=== PATIENT | female | born 1960 | race Caucasian/White ===

== ENCOUNTER 2018-01-12 08:17 | Outpatient (CLI) | payer OTHER | END 2018-01-12 08:18 | disposition home or self-care (01) | LOC: BICCT 08:17 | PROVIDERS: ATTEND Family Medicine | DX: R31.9 Hematuria, unspecified (principal); R10.9 Unspecified abdominal pain; N20.0 Calculus of kidney; I87.8 Other specified disorders of veins; N32.89 Other specified disorders of bladder | CPT/HCPCS: 74176 ==

== ENCOUNTER 2018-07-26 09:19 | Outpatient (CLI) | payer OTHER ==
--- NOTE | 2018-07-26 11:15 | MMO ---
BILATERAL SCREENING MAMMOGRAM: HISTORY: Baseline exam. FINDINGS: Films are reviewed with the assistance of computer aided detection. Scattered fibroglandular changes of both breasts are seen. Nodular densities associated with dense, popcorn-type calcifications are seen within the right breast. 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 There are no suspicious calcifications or other signs of malignancy. Smaller, noncalcified, n odular densities in both breasts are most likely other smaller adenomas, given the multiplicity. Joanna ual follow-up mammogram would be recommended for assessment. IMPRESSION: BI-RADS Category 2-Benign findings. POS: KELECHI
== END 2018-07-26 09:20 | disposition home or self-care (01) ==
LOC: SCSMAMMO 09:19
PROVIDERS: ATTEND Family Medicine
DX: Z12.31 Encounter for screening mammogram for malignant neoplasm of breast (principal); Z80.1 Family history of malignant neoplasm of trachea, bronchus and lung; Z80.0 Family history of malignant neoplasm of digestive organs
CPT/HCPCS: 77067

== ENCOUNTER 2019-04-20 07:44 | Outpatient (CLI) | payer OTHER ==
--- NOTE | 2019-04-20 08:20 | ULT ---
ULTRASOUND ABDOMEN LIMITED: CLINICAL HISTORY: Chronic hepatitis C. Evaluate for cirrhosis.. COMPARISON: None. FINDINGS: Pancreas: The head and proximal pancreatic body have a normal echotexture. Liver:Slightly coarsened hepatic parenchymal echotexture which limits evaluation for hepatic masses a nd intrahepatic biliary dilatation. The contour of the hepatic margin is maintained. Right hepatic lobe measures 17.2 cm. Gallbladder: No sonographic evidence of cholelithiasis, gallbladder wall thickening or pericholecysti c fluid. Gallbladder is mildly distended. Gallbladder is long and folds upon itself. Gallbladder measures approximately 14 cm in length. Harvey's sign: Negative. Portal Vein: Patent. Appropriate directional flow. Bile ducts: 0.4 cm. Right kidney: Right renal cortical thinning. No cortical masses. No hydronephrosis. Right kidney stephen ures 4.0 x 9.4 x 5.3 cm in length. IMPRESSION: 1. Mild heterogeneous echotexture which may be due to hepatic steatosis or hepatocellular disease. 2. Elongated gallbladder, nonspecific. Transcribed Date/Time: 04/20/2019 8:23 AM
== END 2019-04-20 07:45 | disposition home or self-care (01) ==
LOC: BICULT 07:44
PROVIDERS: ATTEND Family Medicine
DX: B18.2 Chronic viral hepatitis C (principal); K82.8 Other specified diseases of gallbladder
CPT/HCPCS: 76705

== ENCOUNTER 2019-04-21 10:45 | Observation (INO) | payer OTHER ==
[~2019-04-21 10:45] MED LIST: PROPOFOL 200 MG/20 ML VIAL ONE
[2019-04-21] MEDS ORDERED: Pantoprazole 40 MG VIAL ONE (11:51)
[2019-04-21 12:13] LABS: #Lymphocytes 1.4 thou/uL (1.20-3.40); #Monocytes 0.4 thou/uL (0.11-0.59); #Neutrophils 5.3 thou/uL (1.40-6.50); %Basophils 0.6 % (0.0-1.0); %Eosinophils 0.1 % (0.0-10.0); %Lymphocytes 19.8 % (21.0-51.0); %Neutrophils 74.5 % (42.0-75.0); Hemoglobin 12.7 g/dL (12.0-16.0); Mean Corpuscular Hemoglobin 33.1 pg (27.0-31.0); Mean Platelet Volume 8.2 fL (7.4-10.4); Platelet Count 197 thou/uL (130-400); RBC Distribution Width 12.3 % (11.5-14.5); Red Blood Cell (RBC) Count 3.86 mill/uL (4.20-5.40); White Blood Cell (WBC) Count 7.1 thou/uL (4.8-10.8)
[2019-04-21 12:21] LABS: INR-International Normal Ratio 1.1; PTT 26.1 SEC (22.9-36.1); Prothrombin Time 14.3 SEC (12.0-14.7)
[2019-04-21 12:37] LABS: ALT (SGPT) 88 U/L (8-55); AST (SGOT) 98 U/L (5-34); Albumin 3.4 g/dL (3.5-5.0); Alkaline Phosphatase 107 U/L (40-110); Anion Gap 10 mmol/L (10-20); BUN (Urea Nitrogen) 39 mg/dL (9.8-20.1); Bilirubin, Total 1.4 mg/dL (0.2-1.2); Calc. Creatinine Clearance 0 mL/min (70-130); Carbon Dioxide 26 mmol/L (22-29); Chloride 110 mmol/L (98-107); Estimated GFR-MDRD 87; Globulin 3.6 g/dL (2.4-3.5); Glucose 108 mg/dL (70-105); Potassium 4.6 mmol/L (3.5-5.1); Sodium 141 mmol/L (136-145)
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
[2019-04-21] MEDS ORDERED: Bisacodyl 5 MG TAB PO PRN (14:17)
[2019-04-21] MEDS ORDERED: Acetaminophen 325 MG TAB PO PRN (14:17)
[2019-04-21] MEDS ORDERED: Promethazine HCl 12.5 MG in Sodium Chloride 0.9% 50 ML IVPB PRN (14:19)
[2019-04-21] MEDS ORDERED: Ondansetron PF 4 MG/2 ML Vial IVP PRN (14:19)
[2019-04-21] MEDS ORDERED: hydrALAZINE 20 MG/ML VIAL SLOW IVP PRN (14:19)
[2019-04-21] MEDS ORDERED: cloNIDine 0.1 MG TAB PO PRN (14:19)
[2019-04-21 15:26] VITALS: BMI 25.4
[2019-04-21] MEDS ORDERED: cefTRIAXone\\ROCEPHIN 1 GM in Sodium Chloride 0.9% 100 ML IVPB SCH (18:00)
[2019-04-21] MEDS: Pantoprazole 40 MG VIAL IVP SCH (19:58)
--- NOTE | 2019-04-21 23:41 | CON ---
DATE OF CONSULTATION: 04/21/2019 REASON FOR CONSULTATION: GI hemorrhage. HISTORY OF PRESENT ILLNESS: Ms. Mali Gould is a very pleasant 58-year-old female who is a resident in the [facility]. History of arthritis and takes ibuprofen on a regular basis. She had nausea, vomiting, and also passed 1 black tarry stool this morning. Apparently, she felt this started this morning and sick to stomach, nausea and vomiting and she vomited fairly good amount of coffee-ground material. She also had one more black tarry subsequently. The patient had no abdominal pain. Since initial vomiting, she has had no nausea or vomiting. She feels hungry and wants to eat. She is hemodynamically stable. She has no prior history of ulcer disease. No prior history of acid reflux. The patient takes ibuprofen on a regular basis because of arthritis. Apparently, she has been taking on a regular basis. There is no prior history of peptic ulcer. Her bowel movements are regular. No history of any prior GI bleeding. She came to the ER and she had an actually normal CBC. In the ER, her CBC showed WBC of 7100, hemoglobin 12.7, hematocrit 38.6, MCV 100. Her BUN is slightly elevated to 39, most likely from GI bleeding. I would expect the hemoglobin drop down once she is rehydrated. No relevant history. ALLERGIES: NONE. SOCIAL HISTORY: The patient is a former smoker. Does not drink alcohol. She has history of opiate addiction many years ago. MEDICAL ILLNESSES: 1. History of hep C infection diagnosed in 2002. Never been treated. The plan is to treat her at the present time. 2. Prior splenectomy after injury. 3. x2. 4. History of hypothyroidism. Synthroid for a while for nearly 20 years. She was told recently that she does not need thyroid replacement. She is on thyroid medication. FAMILY HISTORY: Sister of liver-pancreatic cancer at the age of 38. Grandfather, lung cancer, smoker. Mother, COPD. REVIEW OF SYSTEMS: A 10-point system review: HEAD: No chronic headache. No lightheadedness. No TIA. EYES: No impaired vision. No diplopia. EARS: No hearing loss. NOSE: No nose bleeding. THROAT: No sore throat or dysphagia. NECK: No stiffness or any limitation of movement. LUNGS: No chronic coughing, hemoptysis, dyspnea. CARDIOVASCULAR: No chest pain. No palpitation. No dyspnea, orthopnea, PND. GI: As in History of Present Illness. : No dysuria, hematuria. MUSCULOSKELETAL: History of arthritis and back or knee pains. NEUROPSYCHIATRY: Unremarkable. PHYSICAL EXAMINATION: GENERAL: This is a very pleasant female, appears comfortable. She is in no distress. VITAL SIGNS: Stable. Her pulse is 92, blood pressure 109/52. Therefore, she is afebrile. HEENT: Conjunctivae clear. NECK: Supple. There are no enlarged lymph nodes. Thyroid is not enlarged. LUNGS: Clear to auscultation. CARDIOVASCULAR: Normal heart sounds. No murmur heard. ABDOMEN: Soft. Abdomen is nondistended. Abdomen is nontender. No organomegaly. No masses. Bowel sounds normal. EXTREMITIES: Reveal no edema. LABORATORY DATA: Shows normal hemoglobin, I would expect it to drop down due to the rehydration. Lytes are normal. Chem-7 is normal. BUN is 39. AST is 98, ALT 88, alkaline phosphatase is 107, albumin 3.4. IMPRESSION: 1. A 58-year-old female with nausea, vomiting, and history of vomiting coffee-ground material. She also had one black tarry stool today. 2. History of chronic hepatitis C infection - untreated. 3. Previous splenectomy. 4. Arthritis and takes fairly good amount of ibuprofen recently. PLAN: 1. IV PPI. 2. Serial H and H. 3. EGD later on today and I will make further recommendations after EGD. Job ID: [id number]
--- NOTE | 2019-04-22 00:40 | OP ---
DATE OF PROCEDURE: 04/21/2019 OPERATIVE PROCEDURE: Esophagogastroduodenoscopy with biopsy. PREOPERATIVE DIAGNOSES: Gastrointestinal bleeding, history of vomiting coffee-ground material, and having black tarry stool. POSTOPERATIVE DIAGNOSES: 1. Hiatal hernia. 2. Gastric ulcer of her gastric antrum on the posterior wall, normal bleeding and ulcer base appears clean. 3. 2 to 3 small shallow ulcerations of the gastric antrum. 4. Duodenitis. 5. What appears to be a leafy material in the second part of duodenum, which could not be dislodged. It appeared more of a vegetable matter. DESCRIPTION OF PROCEDURE: The patient was placed on her left lateral position and the throat was anesthetized with Cetacaine spray, and the patient was given sedation by Anesthesia Department. A Pentax video gastroscope under direct vision passed down the oropharynx, past the GE junction into the stomach. The esophageal mucosa appeared normal. The GE junction, no Abimbola-Doan tear seen. The patient had a hiatus hernia measuring approximately about 3 cm. Retroflexion failed to show any pathology in the fundus or cardia. The gastric body, no lesion seen. The gastric antrum on the posterior wall showed an ulceration measuring approximately 1 cm and also appeared chronic. The ulcer base was very clean and smooth. No visible vessel or any bleeding seen. She had 3 more shallow ulcerations of gastric antrum. The duodenal bulb showed duodenitis and when the scope was advanced pass the duodenal sweep, she had a very large leafy greenish vegetable material. I tried to suck it out, I tried to wash it and irrigate it, could not be dislodged. However, I do not see any heme staining or any pathology seen. The scope was withdrawn back into the stomach. Biopsy obtained of the gastric antrum and gastric body. The stomach decompressed and scope removed. RECOMMENDATIONS: 1. Diet as tolerated. 2. Followup H and H tomorrow. 3. PPI. 4. The patient advised not to take any NSAID or ibuprofen. Job ID: [id number]
[2019-04-22 05:47] LABS: ALT (SGPT) 79 U/L (8-55); AST (SGOT) 108 U/L (5-34); Albumin 2.5 g/dL (3.5-5.0); Alkaline Phosphatase 88 U/L (40-110); Anion Gap 10 mmol/L (10-20); BUN (Urea Nitrogen) 31 mg/dL (9.8-20.1); Bilirubin, Direct 0.3 mg/dL (0.1-0.3); Bilirubin, Total 0.6 mg/dL (0.2-1.2); Calc. Creatinine Clearance 94 mL/min (70-130); Calcium 7.9 mg/dL (7.8-10.44); Carbon Dioxide 20 mmol/L (22-29); Chloride 114 mmol/L (98-107); Estimated GFR-MDRD 82; Glucose 124 mg/dL (70-105); Magnesium 1.8 mg/dL (1.6-2.6); Potassium 3.8 mmol/L (3.5-5.1); Protein, Total 5.3 g/dL (6.0-8.3); Sodium 140 mmol/L (136-145)
[2019-04-22] MEDS: Pantoprazole 40 MG VIAL IVP SCH ×2 (08:23→20:26)
[2019-04-22 09:51] LABS: #Basophils 0.1 thou/uL (0.0-0.2); #Eosinphils 0.1 thou/uL (0.0-0.7); #Lymphocytes 4.3 thou/uL (1.20-3.40); #Monocytes 0.9 thou/uL (0.11-0.59); #Neutrophils 3.7 thou/uL (1.40-6.50); %Eosinophils 1.5 % (0.0-10.0); %Lymphocytes 46.6 % (21.0-51.0); %Neutrophils 40.8 % (42.0-75.0); Hemoglobin 9.9 g/dL (12.0-16.0); Mean Corpuscular HGB CONC 33.7 g/dL (32.0-36.0); Mean Corpuscular Hemoglobin 33.5 pg (27.0-31.0); Mean Corpuscular Volume 99.4 fL (78.0-98.0); Mean Platelet Volume 8.1 fL (7.4-10.4); Platelet Count 158 thou/uL (130-400); RBC Distribution Width 12.5 % (11.5-14.5); Red Blood Cell (RBC) Count 2.96 mill/uL (4.20-5.40); White Blood Cell (WBC) Count 9.1 thou/uL (4.8-10.8)
--- NOTE | 2019-04-22 15:40 | PDOC.HOSPP ---
- Subjective Encounter Date: 04/22/19 Encounter Time: 10:15 Subjective: pt up in bed feels a bit dizzy - Objective Vital Signs & Weight: Vital Signs (12 hours) Temp Pulse Resp BP BP Pulse Ox 04/22/19 12:01 98.7 F 69 20 112/67 96 04/22/19 07:25 98.1 F 78 20 106/72 97 04/22/19 06:08 76 97/57 L 04/22/19 04:13 98.4 F 82 16 93/57 L 95 Weight Weight 158 lb I&O: 04/21/19 04/22/19 04/23/19 06:59 06:59 06:59 Intake Total 540 Output Total 0 Balance 540 Result Diagrams: 04/22/19 07:34 04/22/19 05:07 Hospitalist ROS - Medication Medications: Active Medications Generic Name Dose Route Start Last Admin Trade Name Freq PRN Reason Stop Dose Admin Ceftriaxone Sodium 1 gm/ 100 mls @ 200 mls/hr 04/21/19 18:00 04/21/19 18:42 Sodium Chloride IVPB 100 mls Q24HR LOUISA Administration Pantoprazole Sodium 40 mg 04/21/19 21:00 04/22/19 08:23 Protonix IVP 40 mg Q12HR LOUISA Administration Hosp A/P (1) Upper GI bleed Code(s): K92.2 - GASTROINTESTINAL HEMORRHAGE, UNSPECIFIED Status: Acute (2) Gastric ulcer Code(s): K25.9 - GASTRIC ULCER, UNSP ACUTE OR CHRONIC, W/O HEMOR OR PERF Status: Acute (3) Duodenitis Code(s): K29.80 - DUODENITIS WITHOUT BLEEDING Status: Acute - Plan will continue ppi, stop abx, will monitor for one more day she was dizzy today. hh did drop.
--- NOTE | 2019-04-22 19:58 | PRG ---
DATE OF SERVICE: 04/22/2019 SUBJECTIVE: This is a 58-year-old female, hospitalized because of GI bleeding. She underwent EGD and was found to have a gastric ulcer and also two more small ulcer in the gastric antrum. The ulcer was not bleeding. The patient has been tolerating regular diet with good control. No nausea. No vomiting. She had a stool. The stool is still tarry. This probably represents passing old blood left in the colon. The blood count did drop down from 12.7 to 9.9, which is not surprising. It was felt she probably lost blood volume. Her BUN was high yesterday from the GI bleeding. Today, she appears very comfortable. No abdominal pain. No nausea or vomiting. She is tolerating diet. OBJECTIVE: GENERAL: Appears comfortable. VITAL SIGNS: Afebrile, pulse 72, blood pressure 113/71. HEENT: Conjunctivae are clear. CARDIOVASCULAR SYSTEM: First and second heart sounds are normal. LUNGS: Clear to auscultation. ABDOMEN: Soft. No organomegaly. No tenderness. No masses. LABORATORY DATA: CBC; WBC 9100, hemoglobin 9.9, hematocrit 29.4, MCV 99.4, platelet count is 158,000. The chemistry panel shows BUN dropping from 39 to 31. Lytes are normal. Her liver function tests are elevated from her chronic hep C. IMPRESSION: 1. Upper gastrointestinal bleeding, most likely from the gastric ulcer. Upper endoscopy, there was no active bleeding seen. 2. Chronic hepatitis C. 3. Anemia due to blood loss. RECOMMENDATION: Follow up H and H. If stable tomorrow, consider discharge back to the facility where she came from. I believe she should stay on the PPI at least for 3 months. She also was prior explained about not taking aspirin or any ibuprofen or any NSAIDs medication. Job ID: [id number]
[2019-04-23 06:05] LABS: ALT (SGPT) 82 U/L (8-55); AST (SGOT) 103 U/L (5-34); Albumin 2.6 g/dL (3.5-5.0); Alkaline Phosphatase 89 U/L (40-110); Anion Gap 10 mmol/L (10-20); BUN (Urea Nitrogen) 23 mg/dL (9.8-20.1); Bilirubin, Direct 0.3 mg/dL (0.1-0.3); Bilirubin, Total 0.6 mg/dL (0.2-1.2); Calc. Creatinine Clearance 104 mL/min (70-130); Calcium 8.1 mg/dL (7.8-10.44); Carbon Dioxide 20 mmol/L (22-29); Chloride 111 mmol/L (98-107); Estimated GFR-MDRD Greater than 90; Glucose 91 mg/dL (70-105); Potassium 3.8 mmol/L (3.5-5.1); Protein, Total 5.7 g/dL (6.0-8.3); Sodium 137 mmol/L (136-145)
[2019-04-23 06:19] LABS: Eosinophils 2 % (0-10); Hemoglobin 10.3 g/dL (12.0-16.0); Lymphocytes 49 % (21-51); MDiff Complete? YES; Mean Corpuscular HGB CONC 32.4 g/dL (32.0-36.0); Mean Corpuscular Hemoglobin 32.8 pg (27.0-31.0); Mean Platelet Volume 8.1 fL (7.4-10.4); Monocytes 8 % (0-10); Neutrophil 41 % (42-75); Platelet Count 171 thou/uL (130-400); RBC Distribution Width 12.5 % (11.5-14.5); Red Blood Cell (RBC) Count 3.13 mill/uL (4.20-5.40); White Blood Cell (WBC) Count 7.8 thou/uL (4.8-10.8)
[2019-04-23 08:20] VITALS: BP 131/77; TEMP 98.4
[2019-04-23] MEDS: Pantoprazole 40 MG VIAL IVP SCH (09:02)
--- NOTE | 2019-04-24 15:09 | DIS ---
DATE OF ADMISSION: 04/21/2019 DATE OF DISCHARGE: 04/23/2019 DISCHARGE DIAGNOSES: As of the followin. Upper gastrointestinal bleed. 2. Gastric ulcer. 3. Duodenitis. HOSPITAL COURSE: The patient is a 58-year-old female, who initially presented to the hospital on 04/21 with complaints of nausea and threw up a large volume of emesis. The patient was noted to have melena. She does have a history of hepatitis C and has had a splenectomy. She has not started her hepatitis C medications. She is currently at the [facility]. The patient initially was supposed to be started on the workup for her hepatitis C, which has not been done yet. The patient at this time also was noted to have been taking increased NSAIDs for her knee pain. She underwent an EGD per GI. The EGD indicated hiatal hernia, gastric ulcer of her gastric antrum on the posterior wall, normal bleeding and ulcer base appears clean, 2 or 3 small shallow ulcerations of the gastric antrum and duodenitis. The patient continued to improve. Her IV Protonix was transitioned to p.o. Her H and H was stable and then she was discharged. HOME MEDICATIONS: 1. Protonix 40 mg twice a day. 2. I gave her some tramadol 50 mg q.6. I have asked her to refrain from any sort of NSAIDs and she understands. PHYSICAL EXAMINATION: VITAL SIGNS: Her temperature was 98.4, pulse 66, respiratory rate 16, O2 saturation 95% on room air, blood pressure 131/77. GENERAL: She is awake, alert, and oriented x3. Does not appear in distress. CV: S1, S2 present. No murmurs, rubs, or gallops. ABDOMEN: Soft, nontender. Bowel sounds are present x2. Job ID: [id number]
== END 2019-04-23 10:37 | disposition home or self-care (01) ==
LOC: ERS 10:45 → EEVIPCON 10:45 → 2SW 13:42
PROVIDERS: ADMIT Internal Medicine; ATTEND Internal Medicine
PROC: 0DB78ZX Excision of Stomach, Pylorus, Via Natural or Artificial Opening Endoscopic, Diagnostic (ICD-10-PCS; principal; 2019-04-21)
DX: K29.51 Unspecified chronic gastritis with bleeding (principal); B96.81 Helicobacter pylori [H. pylori] as the cause of diseases classified elsewhere; K25.4 Chronic or unspecified gastric ulcer with hemorrhage; K29.81 Duodenitis with bleeding; K44.9 Diaphragmatic hernia without obstruction or gangrene; D62 Acute posthemorrhagic anemia; B18.2 Chronic viral hepatitis C; R79.89 Other specified abnormal findings of blood chemistry; M19.90 Unspecified osteoarthritis, unspecified site; F11.21 Opioid dependence, in remission; E03.9 Hypothyroidism, unspecified; Z87.891 Personal history of nicotine dependence; Z90.81 Acquired absence of spleen
CPT/HCPCS: 36415; 80048; 80053; 80076; 82274; 83735; 85025; 85610; 85730; 88305; 88312; 96361; 96374; 96376; C9113; G0378; J0696; J2704; J3490